=== PATIENT | female | born 1990 | race Caucasian/White ===

== ENCOUNTER 2017-08-01 01:43 | Emergency (ER) | payer OTHER ==
[~2017-08-01] VITALS: Ht 154.9 cm; Wt 54.4 kg
[~2017-08-01 01:43] MED LIST: CHLORDIAZEPOXIDE PO
--- NOTE | 2017-08-01 02:55 | NUR ---
pt aao x4, able to speak in full sentences and verbalize needs. no acute distress noted at this time. respirations non labored and equal. no cardiovascular distress. ER MD at bedside now for MSE
[2017-08-01] MEDS ORDERED: IV NORMAL SALINE 1000 ML BAG IV ONE (03:15)
[2017-08-01] MEDS ORDERED: PANTOPRAZOLE SODIUM 40 MG VIAL IV ONE (03:15)
[2017-08-01] MEDS ORDERED: LORAZEPAM 2 MG/1 ML VIAL IV ONE (03:15)
[2017-08-01] MEDS ORDERED: ONDANSETRON 4 MG/2 ML VIAL IV ONE (03:15)
[2017-08-01] MEDS ORDERED: LORAZEPAM 2 MG/1 ML VIAL ONE (03:25)
[2017-08-01 03:41] LABS: BASOPHILS % (AUTO) 0.8 % (0.0-2.0); EOSINOPHILS # (AUTO) 0.1 K/uL (0.0-0.7); EOSINOPHILS % (AUTO) 2.8 % (0.0-7.0); HEMATOCRIT 34.9 % (31.2-41.9); HEMOGLOBIN 11.7 g/dL (10.9-14.3); LYMPHOCYTES # (AUTO) 1.7 K/uL (20.0-40.0); MEAN CORPUSCULAR HEMOGLOBIN 29.4 uug (24.7-32.8); MEAN CORPUSCULAR HGB CONC 33 g/dL (32.3-35.6); MEAN CORPUSCULAR VOLUME 88.1 fL (75.5-95.3); MONOCYTES # (AUTO) 0.3 K/uL (2.0-10.0); MONOCYTES % (AUTO) 7.2 % (0.0-11.0); NEUTROPHILS # (AUTO) 2.5 K/uL (1.8-8.9); NEUTROPHILS % (AUTO) 53.2 % (38.5-71.5); PLATELET COUNT (AUTO) 243 K/uL (179-408); RED BLOOD CELL COUNT(AUTO) 3.96 MIL/uL (3.63-4.92); WHITE BLOOD COUNT (AUTO) 4.7 K/uL (3.8-11.8)
[2017-08-01] MEDS ORDERED: ONDANSETRON 4 MG/2 ML VIAL ONE (03:43)
[2017-08-01] MEDS ORDERED: PANTOPRAZOLE SODIUM 40 MG VIAL ONE (03:43)
[2017-08-01 03:52] LABS: ETHANOL 87 MG/DL (0-0)
[2017-08-01 03:57] LABS: ALANINE AMINOTRANSFERASE 126 U/L (14-59); ALKALINE PHOSPHATASE 95 U/L (50-136); ASPARTATE AMINOTRANSFERASE 81 U/L (15-37); BILIRUBIN,DIRECT < 0.1 mg/dL (0.0-0.2); BILIRUBIN,TOTAL 0.2 mg/dL (0.2-1.0); CARBON DIOXIDE 25 mmol/L (21-32); CHLORIDE 103 mmol/L (98-107); CREATININE 0.6 mg/dL (0.6-1.3); GLUCOSE 92 mg/dL (74-106); POTASSIUM 3.6 mmol/L (3.5-5.1); UREA NITROGEN, BLOOD 7 mg/dL (7-18)
--- NOTE | 2017-08-01 04:16 | NUR ---
Patient is resting comfortably in bed with eyes closed, not in any acute distress. boyfriend at bedside
--- NOTE | 2017-08-01 04:52 | NUR ---
Patient does not wish to proceed with medical care recommended by Dr. Sams. Patient given information related to possible complications, up to and including , which could occur as a result of leaving the hospital at this time. Patient verbalizes understanding of risks involved due to leaving against medical advice. Patient has signed AMA form. All belongings taken with patient, peripheral IV removed prior to AMA. Pt ambulated from ER with stable gait. No s/sx of altered balance or ability of motor function. Pt to be driven home by significant other. Education provided to pt to refrain heavy machinery or driving d/t recent ativan intake. Pt agreeable to education and will comply.
[2017-08-01 05:13] LABS: *AMPHETAMINE, URINE POSITIVE (NEGATIVE); *BARBITURATE, URINE NEGATIVE (NEGATIVE); *CANNABINOID, URINE NEGATIVE (NEGATIVE); *COCCAINE, URINE NEGATIVE (NEGATIVE); *OPIATE, URINE POSITIVE (NEGATIVE); *PHENCYCLIDINE SCREEN,URINE NEGATIVE (NEGATIVE)
== END 2017-08-01 04:52 | disposition left against medical advice (07) ==
LOC: ER 01:43
DX: F10.10 Alcohol abuse, uncomplicated (principal); F19.10 Other psychoactive substance abuse, uncomplicated; R07.9 Chest pain, unspecified; F17.200 Nicotine dependence, unspecified, uncomplicated; G40.909 Epilepsy, unspecified, not intractable, without status epilepticus
CPT/HCPCS: 36415; 71045; 80048; 80076; 80307; 83690; 84484; 84703; 85025; 93005; 96361; 96374; 96375; 99285; A4663; C9113; G0480; J2060; J2405; J7030; 70030-TC

== ENCOUNTER 2017-08-28 07:17 | Inpatient (IN) | payer OTHER ==
[~2017-08-28] VITALS: Ht 154.9 cm; Wt 49.9 kg
[2017-08-28] MEDS ORDERED: LORAZEPAM 1 MG TABLET (07:36)
[2017-08-28] MEDS ORDERED: [UNRECOGNIZED DRUG - OTHER] PO (07:36)
[2017-08-28] MEDS ORDERED: HYDROXYZINE PAM 25 MG CAP PO (07:37)
[2017-08-28] MEDS ORDERED: CHLORDIAZEPOXIDE HCL 25 MG CAPSULE PO ONE (08:15)
[2017-08-28] MEDS ORDERED: ONDANSETRON 4 MG/2 ML VIAL IV ONE (08:15)
[2017-08-28] MEDS ORDERED: ONDANSETRON 4 MG/2 ML VIAL ONE (08:16)
[2017-08-28] MEDS ORDERED: CHLORDIAZEPOXIDE HCL 25 MG CAPSULE ONE (08:16)
[2017-08-28 08:38] LABS: BASOPHILS % (AUTO) 0.3 % (0.0-2.0); EOSINOPHILS # (AUTO) 0.2 K/uL (0.0-0.7); EOSINOPHILS % (AUTO) 3.7 % (0.0-7.0); HEMATOCRIT 37.2 % (31.2-41.9); HEMOGLOBIN 12.2 g/dL (10.9-14.3); LYMPHOCYTES # (AUTO) 0.9 K/uL (20.0-40.0); LYMPHOCYTES % (AUTO) 16.4 % (20.5-51.5); MEAN CORPUSCULAR HEMOGLOBIN 28.6 uug (24.7-32.8); MEAN CORPUSCULAR HGB CONC 33 g/dL (32.3-35.6); MEAN CORPUSCULAR VOLUME 87.3 fL (75.5-95.3); MONOCYTES # (AUTO) 0.4 K/uL (2.0-10.0); MONOCYTES % (AUTO) 7.1 % (0.0-11.0); NEUTROPHILS # (AUTO) 3.8 K/uL (1.8-8.9); NEUTROPHILS % (AUTO) 72.5 % (38.5-71.5); PLATELET COUNT (AUTO) 195 K/uL (179-408); RED BLOOD CELL COUNT(AUTO) 4.25 MIL/uL (3.63-4.92); WHITE BLOOD COUNT (AUTO) 5.3 K/uL (3.8-11.8)
[2017-08-28 08:41] LABS: CREATININE 0.6 mg/dL (0.6-1.3); POTASSIUM 3.3 mmol/L (3.5-5.1)
[2017-08-28 08:48] LABS: ETHANOL < 3 MG/DL (0-0)
[2017-08-28 08:56] LABS: BILIRUBIN,DIRECT 0.4 mg/dL (0.0-0.2); BILIRUBIN,TOTAL 0.9 mg/dL (0.2-1.0)
[2017-08-28 11:50] VITALS: BP 117/80
[2017-08-28] MEDS: ONDANSETRON 4 MG/2 ML VIAL IV PRN (13:11)
[2017-08-28 15:15] VITALS: BP 115/78
[2017-08-28] MEDS ORDERED: MAGNESIUM HYDROXIDE 30 ML LIQUID UDC PO PRN (16:45)
[2017-08-28] MEDS ORDERED: ZOLPIDEM 5 MG TABLET PO PRN (16:45)
[2017-08-28] MEDS ORDERED: ACETAMINOPHEN 325 MG TABLET PO PRN (16:45)
[2017-08-28] MEDS ORDERED: ONDANSETRON 4 MG/2 ML VIAL IV PRN (16:45)
[2017-08-28] MEDS ORDERED: MORPHINE SULFATE 2 MG/1 ML DISP.SYRIN IV PRN (16:45)
[2017-08-28] MEDS ORDERED: HYDROCODONE/APAP 5-325MG TABLET PO PRN (16:45)
[2017-08-28] MEDS ORDERED: Z GUARD REMEDY PASTE 57 GM TUBE TOP PRN (16:45)
[2017-08-28] MEDS: MORPHINE SULFATE 4 MG/1 ML DISP.SYRIN IV PRN ×2 (16:59→21:20)
[2017-08-28] MEDS: IV NS 1000 ML 1,000 ML IV PRN (17:06)
[2017-08-28 20:00] VITALS: BP 100/76
[2017-08-28 20:44] LABS: BILIRUBIN,DIRECT 0.6 mg/dL (0.0-0.2); BILIRUBIN,TOTAL 1.1 mg/dL (0.2-1.0); TOTAL PROTEIN, SERUM 6.8 g/dL (6.4-8.2)
[2017-08-29] MEDS: ONDANSETRON 4 MG/2 ML VIAL IV PRN ×2 (01:19→11:22)
[2017-08-29 06:00] VITALS: BP 103/65
[2017-08-29 06:26] LABS: BASOPHILS % (AUTO) 0.5 % (0.0-2.0); EOSINOPHILS # (AUTO) 0.3 K/uL (0.0-0.7); EOSINOPHILS % (AUTO) 5.4 % (0.0-7.0); HEMATOCRIT 39.4 % (31.2-41.9); HEMOGLOBIN 12.8 g/dL (10.9-14.3); LYMPHOCYTES # (AUTO) 2.1 K/uL (20.0-40.0); LYMPHOCYTES % (AUTO) 40.7 % (20.5-51.5); MEAN CORPUSCULAR HEMOGLOBIN 28.8 uug (24.7-32.8); MEAN CORPUSCULAR HGB CONC 33 g/dL (32.3-35.6); MEAN CORPUSCULAR VOLUME 88.3 fL (75.5-95.3); MONOCYTES # (AUTO) 0.5 K/uL (2.0-10.0); NEUTROPHILS # (AUTO) 2.2 K/uL (1.8-8.9); NEUTROPHILS % (AUTO) 43.4 % (38.5-71.5); PLATELET COUNT (AUTO) 196 K/uL (179-408); RED BLOOD CELL COUNT(AUTO) 4.46 MIL/uL (3.63-4.92); WHITE BLOOD COUNT (AUTO) 5.1 K/uL (3.8-11.8)
[2017-08-29 06:39] LABS: CREATININE 0.7 mg/dL (0.6-1.3); MAGNESIUM 1.7 mg/dL (1.8-2.4); POTASSIUM 3.6 mmol/L (3.5-5.1)
[2017-08-29] MEDS: MORPHINE SULFATE 4 MG/1 ML DISP.SYRIN IV PRN ×2 (06:49→11:23)
[2017-08-29] MEDS: IV NS 1000 ML 1,000 ML IV PRN (08:20)
[2017-08-29] MEDS ORDERED: CHLO10CA6 PO (09:45)
[2017-08-29] MEDS ORDERED: HYDR25CA PO (09:46)
[2017-08-29] MEDS ORDERED: LORA1TAB PO (09:47)
[2017-08-29] MEDS ORDERED: NITR100C6 PO (09:47)
[2017-08-29] MEDS ORDERED: MAGNESIUM OXIDE 400 MG TABLET PO ONE (10:30)
[2017-08-29 11:47] VITALS: BP 94/56
[2017-08-29] MEDS ORDERED: CHLO25CA22 PO (13:58)
== END 2017-08-29 16:45 | disposition home or self-care (01) | DRG 280 ==
LOC: ER 07:20 → MED 10:56
PROVIDERS: ADMIT Internal Medicine; ATTEND Nurse Practitioner Acute Care
DX: K70.10 Alcoholic hepatitis without ascites (principal); N39.0 Urinary tract infection, site not specified; F10.239 Alcohol dependence with withdrawal, unspecified; F15.10 Other stimulant abuse, uncomplicated; Y90.0 Blood alcohol level of less than 20 mg/100 ml; F41.9 Anxiety disorder, unspecified; G40.909 Epilepsy, unspecified, not intractable, without status epilepticus; F17.290 Nicotine dependence, other tobacco product, uncomplicated
CPT/HCPCS: 36415; 70030-TC; 76705; 83690; 83735; 84100; 84703; 85025; 85730; A4663; G0480; J2270; J2405; J7030

== ENCOUNTER 2018-02-26 14:09 | Emergency (ER) | payer OTHER ==
[~2018-02-26] VITALS: Ht 160 cm; Wt 49.9 kg
[~2018-02-26 14:09] MED LIST changes: +CHLO10CA6 PO; +CHLO25CA22 PO; -CHLORDIAZEPOXIDE PO; +HYDR25CA PO; +LORA1TAB PO; +NITR100C6 PO
--- NOTE | 2018-02-26 14:40 | NUR ---
PT SLEEPING, SIDE RALES UP.
[2018-02-26 14:54] LABS: BASOPHILS % (AUTO) 0.7 % (0.0-2.0); EOSINOPHILS # (AUTO) 0.1 K/uL (0.0-0.7); EOSINOPHILS % (AUTO) 1.4 % (0.0-7.0); HEMATOCRIT 34.4 % (31.2-41.9); HEMOGLOBIN 11.2 g/dL (10.9-14.3); LYMPHOCYTES # (AUTO) 1.4 K/uL (20.0-40.0); LYMPHOCYTES % (AUTO) 28.4 % (20.5-51.5); MEAN CORPUSCULAR HEMOGLOBIN 30.6 uug (24.7-32.8); MEAN CORPUSCULAR HGB CONC 33 g/dL (32.3-35.6); MEAN CORPUSCULAR VOLUME 94.3 fL (75.5-95.3); MONOCYTES # (AUTO) 0.2 K/uL (2.0-10.0); NEUTROPHILS # (AUTO) 3.2 K/uL (1.8-8.9); NEUTROPHILS % (AUTO) 64.5 % (38.5-71.5); PLATELET COUNT (AUTO) 199 K/uL (179-408); RED BLOOD CELL COUNT(AUTO) 3.65 MIL/uL (3.63-4.92); WHITE BLOOD COUNT (AUTO) 4.9 K/uL (3.8-11.8)
[2018-02-26 15:05] LABS: CARBON DIOXIDE 21 mmol/L (21-32); CHLORIDE 105 mmol/L (98-107); CREATININE 0.5 mg/dL (0.6-1.3); GLUCOSE 69 mg/dL (74-106); UREA NITROGEN, BLOOD 8 mg/dL (7-18)
[2018-02-26 15:06] LABS: ETHANOL 98 MG/DL (0-0)
[2018-02-26 15:11] LABS: ALANINE AMINOTRANSFERASE 57 U/L (14-59); ALKALINE PHOSPHATASE 59 U/L (50-136); ASPARTATE AMINOTRANSFERASE 72 U/L (15-37); BILIRUBIN,DIRECT 0.1 mg/dL (0.0-0.2); BILIRUBIN,TOTAL 0.4 mg/dL (0.2-1.0); TOTAL PROTEIN, SERUM 6.4 g/dL (6.4-8.2)
--- NOTE | 2018-02-26 15:24 | NUR ---
PT DIFFICUKLT TO AROSE, UNABLE TO OFFER FOOD OR DRINK.
[2018-02-26 15:48] LABS: *URINE HCG, QUAL NEGATIVE (NEGATIVE)
[2018-02-26 16:01] LABS: *AMPHETAMINE, URINE POSITIVE (NEGATIVE); *BARBITURATE, URINE NEGATIVE (NEGATIVE); *CANNABINOID, URINE NEGATIVE (NEGATIVE); *COCCAINE, URINE NEGATIVE (NEGATIVE); *OPIATE, URINE POSITIVE (NEGATIVE); *PHENCYCLIDINE SCREEN,URINE NEGATIVE (NEGATIVE)
--- NOTE | 2018-02-26 16:35 | NUR ---
PT ELOPED, TOOK ALL BELONGINGS.
== END 2018-02-26 16:37 | disposition left against medical advice (07) ==
LOC: ER 14:09
DX: F10.129 Alcohol abuse with intoxication, unspecified (principal); F15.10 Other stimulant abuse, uncomplicated; F17.200 Nicotine dependence, unspecified, uncomplicated; F12.10 Cannabis abuse, uncomplicated
CPT/HCPCS: 36415; 80048; 80076; 80307; 84703; 85025; 99284; A4663; G0480

== ENCOUNTER 2018-03-25 07:38 | Emergency (ER) | payer OTHER ==
[~2018-03-25] VITALS: Ht 154.9 cm; Wt 54.4 kg
[2018-03-25] MEDS ORDERED: IBUPROFEN 600 MG TABLET PO ONE (08:00)
[2018-03-25] MEDS ORDERED: IBUPROFEN 600 MG TABLET ONE (08:05)
[2018-03-25] MEDS ORDERED: ARIPIPRAZOLE 2 MG TABLET PO ONE (08:30)
[2018-03-25] MEDS ORDERED: ARIPIPRAZOLE 2 MG TABLET ONE (08:31)
--- NOTE | 2018-03-25 08:45 | NUR ---
Pt is sitting in [facility] and eating breakfast with NAD noted at this time. Attempted to call social media marketing specialist for pt per request, there was no answer at this time, will attempt again later.
--- NOTE | 2018-03-25 08:51 | NUR ---
Pt ate breakfast, stated she called her boyfriend, has to go and walked out of ER with steady gait. Dr.Sauer canales.
--- NOTE | 2018-03-25 09:05 | NUR ---
Pt had eloped from the ER, the ER physician went out to look for the pt and escorted her back to room 3.
[2018-03-25] MEDS ORDERED: LORAZEPAM 2 MG/1 ML VIAL IM ONE (09:15)
--- NOTE | 2018-03-25 09:26 | NUR ---
ativan im admin eralier, urine sent prior to ativan admin, pt given breakfast earlier, and was still hungry so sanch and apple juice given. blood was drawn.
[2018-03-25 09:31] LABS: BASOPHILS # (AUTO) 0.1 K/uL (0.0-8.0); BASOPHILS % (AUTO) 0.9 % (0.0-2.0); EOSINOPHILS # (AUTO) 0.1 K/uL (0.0-0.7); EOSINOPHILS % (AUTO) 2.2 % (0.0-7.0); HEMATOCRIT 34.5 % (31.2-41.9); HEMOGLOBIN 11.6 g/dL (10.9-14.3); LYMPHOCYTES # (AUTO) 1.9 K/uL (20.0-40.0); LYMPHOCYTES % (AUTO) 30.5 % (20.5-51.5); MEAN CORPUSCULAR HEMOGLOBIN 30.7 uug (24.7-32.8); MEAN CORPUSCULAR HGB CONC 34 g/dL (32.3-35.6); MEAN CORPUSCULAR VOLUME 90.9 fL (75.5-95.3); MONOCYTES # (AUTO) 0.4 K/uL (2.0-10.0); MONOCYTES % (AUTO) 6.5 % (0.0-11.0); NEUTROPHILS # (AUTO) 3.7 K/uL (1.8-8.9); NEUTROPHILS % (AUTO) 59.9 % (38.5-71.5); PLATELET COUNT (AUTO) 295 K/uL (179-408); RED BLOOD CELL COUNT(AUTO) 3.79 MIL/uL (3.63-4.92); WHITE BLOOD COUNT (AUTO) 6.2 K/uL (3.8-11.8)
[2018-03-25 09:35] LABS: CARBON DIOXIDE 27 mmol/L (21-32); CHLORIDE 101 mmol/L (98-107); CREATININE 0.7 mg/dL (0.6-1.3); GLUCOSE 129 mg/dL (74-106); POTASSIUM 3.1 mmol/L (3.5-5.1); UREA NITROGEN, BLOOD 13 mg/dL (7-18)
[2018-03-25 09:40] LABS: ALANINE AMINOTRANSFERASE 43 U/L (14-59); ALKALINE PHOSPHATASE 66 U/L (50-136); ASPARTATE AMINOTRANSFERASE 24 U/L (15-37); BILIRUBIN,DIRECT 0.1 mg/dL (0.0-0.2); BILIRUBIN,TOTAL 0.3 mg/dL (0.2-1.0); TOTAL PROTEIN, SERUM 7.1 g/dL (6.4-8.2)
[2018-03-25 09:42] LABS: *AMPHETAMINE, URINE POSITIVE (NEGATIVE); *BARBITURATE, URINE NEGATIVE (NEGATIVE); *CANNABINOID, URINE NEGATIVE (NEGATIVE); *COCCAINE, URINE NEGATIVE (NEGATIVE); *OPIATE, URINE POSITIVE (NEGATIVE); *PHENCYCLIDINE SCREEN,URINE NEGATIVE (NEGATIVE)
[2018-03-25 09:43] LABS: ETHANOL < 3 MG/DL (0-0)
--- NOTE | 2018-03-25 13:15 | NUR ---
returned with taxi voucher and aci/rx x1 for patient. pt was not found in the ER, I looked outside and did not see the patient. I notified DR Sams.
== END 2018-03-25 09:00 | disposition left against medical advice (07) ==
LOC: ER 07:38
DX: M25.561 Pain in right knee (principal); F29 Unspecified psychosis not due to a substance or known physiological condition; F15.10 Other stimulant abuse, uncomplicated; F12.10 Cannabis abuse, uncomplicated; F17.200 Nicotine dependence, unspecified, uncomplicated
CPT/HCPCS: 36415; 80307; 84703; 85025; A4663; G0480; J2060